=== PATIENT | male | born 1950 | race Caucasian/White ===

== ENCOUNTER 2020-01-20 17:45 | Emergency (ER) | payer OTHER ==
--- OUTSIDE RECORDS SUMMARY | 2020-01-20 17:46 | XMS REPORT | Continuity of Care Document ---
:1950 Author Organization [facility] t Address [address] [place] [address] Care Team Providers Name Role Phone Unavailable Unavailable Unavailable Problems Condition Condition Condition Status Onset Resolution Last Treating Co mments Source Name Details Category Date Date Treatment Clinician Date Seasonal Seasonal Problem [facility] Irregular Irregular Diagnosis Active [facility] heart rate heart rate Angy kes - [facility] Erectile Erectile Problem Active [facility] dysfunctio dysfunctio [facility]gy kes - n n [facility] Acute Acute Diagnosis Active [facility] pharyngiti pharyngiti Angy kes - s, s, Memoria unspecifie unspecifie l d etiology d etiology [facility] URI, acute URI, acute Diagnosis [facility] Bradycardi Bradycardi Problem Active [facility]ics Acute Acute Diagnosis Active [facility] bronchitis bronchitis Angy kes - , , Memoria unspecifie unspecifie l d organism d organism [facility] Allergies, Adverse Reactions, Alerts Allergy Allergy Status Severity Reaction(s) Onset Inactive Treating Comm ents Source Name Type Date Date Clinician codeine Adverse Active constipation [facility] Medications Ordered Filled Start Stop Current Ordering Indication Dosage Frequency Signature Comments Components Source Medication Medication Date Date Medication? Clinician (SIG) Name Name ProAir HFA ProAir HFA 2018-04 Yes Laine [address] [facility] 0-15 [place] needed for Luke s - 00:00: sob/wheezi [facility]oria 00 ng l [facility] Augmentin Augmentin 2018-04 2019- No Laine [address] [facility] 0-15 10-25 [facility] - 00:[facility]:00 [facility] 00 :[facility] l [facility] ent Clinics Sherrie Balderas 2019- 2019- No Laine [address] [facility] Perles Perles 0-15 10-25 Millender as needed [facility] - 00:00: 00:00 for cough Memoria 00 :00 l Outpati ent Clinics Oscillococc Oscillococc Yes Laine as [facility] inum inum Millender directed kes - [facility] Outpati ent Clinics Alive Mens Alive Mens Yes Laine as [facility] [employer] Millender directed kes [facility] Outpat[facility] ent Clinics Turmeric Turmeric Yes Laine [address] Millender [facility] Outpat[facility] ent Clinics Procedures This patient has no known procedures. Encounters Start End Encounter Admission Attending Care Care Encounter Source Date/Time Date/Time Type Type Clinicians Facility Department ID 2019-02-10 2019-02-10 Outpatient Shimon Davidson [id number] [facility] 09[facility]00 09[facility]00[facility]00 [facility] Outpati ent Clinics 2018-07-17 2018-07-17 Outpatient Shimon Davidson [id number] 09:30[facility]00 09:30:00 [facility] Outpat[facility] ent Clinics Results This patient has no known results.
[2020-01-20] MEDS ORDERED: TETANUS & DIPHTHERIA TOX,ADULT 0.5 ML VIAL ONE (20:22)
--- NOTE | 2020-01-20 20:47 | ER ---
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 Coronavirus ca1 screen: Client denies travel out of the [place] in the last 14 days. At this time, the client does not indicate any symptoms associated with coronavirus-19. Ebola Screen: Patient negative for fever greater than or equal to 101.5 degrees Fahrenheit, and additional compatible Ebola Virus Disease symptoms Patient denies exposure to infectious person. Patient denies travel to an Ebola-affected area in the 21 days before illness onset. No symptoms or risks identified at this time. Complicating Factors: There are no complicating factors for this patient. Initial Sepsis Screen: Does the patient meet any 2 criteria? No. Patient's initial sepsis screen is negative. Does the patient have a suspected source of infection? No. Patient's initial sepsis screen is negative. Risk Assessment: Do you want to hurt yourself or someone else? Patient reports no desire to harm self or others. Onset of symptoms was January 20, 2020. 18:14 Method Of Arrival: Ambulatory ca1 18:14 Acuity: DIANNA 4 ca1 Historical: - Allergies: 18:18 poison DAWNA; ca1 - Home Meds: 18:18 gabapentin oral oral [Active]; levothyroxine oral [Active]; Tramadol Oral [Active]; ca1 - PMHx: 18:18 Thyroid problem; Arthritis; ca1 - PSHx: 18:18 Clavicle Surgery; Vasectomy; ca1 - Immunization history:: Adult Immunizations up to date, Last tetanus immunization: unknown. - Social history:: Smoking status: Patient denies any tobacco usage or history of. Screenin:00 Abuse screen: Denies threats or abuse. Denies injuries from another. Nutritional ca1 screening: No deficits noted. Tuberculosis screening: No symptoms or risk factors identified. Fall Risk None identified. Assessment: 20:00 General: Appears in no apparent distress. comfortable, Behavior is calm, cooperative, ca1 appropriate for age. Pain: Complains of pain in left arm Pain currently is 4 out of 10 on a pain scale. Derm: Skin is healthy with good turgor, Skin is pink, warm \T\ dry. Musculoskeletal: Circulation, motion, and sensation intact. Capillary refill < 3 seconds. Injury Description: Laceration sustained to dorsal aspect of left forearm is clean, 0.5 to 2.5 cm long, not bleeding, was sustained 30-60 minutes ago. is bleeding a small amount. 21:00 Reassessment: Patient appears in no apparent distress at this time. Patient and/or ca1 family updated on plan of care and expected duration. Pain level reassessed. Patient is alert, oriented x 3, equal unlabored respirations, skin warm/dry/pink. Vital Signs: 18:14 BP 144 / 91; Pulse 72; Resp 16 S; Temp 97.1(TE); Pulse Ox 99% on R/A; Weight 117.93 kg ca1 (R); Height 6 ft. 0 in. (182.88 cm) (R); 20:00 BP 144 / 71; Pulse 58; Resp 15 S; Pulse Ox 100% on R/A; ca1 21:00 BP 142 / 91; Pulse 61; Resp 18 S; Pulse Ox 100% on R/A; ca1 18:14 Body Mass Index 35.26 (117.93 kg, 182.88 cm) ca1 ED Course: 17:48 Patient arrived in ED. as 18:16 Triage completed. ca1 18:18 Arm band placed on right wrist. ca1 19:57 Serene Caro RN is Primary Nurse. ca1 20:00 Patient has correct armband on for positive identification. Bed in low position. Call ca1 light in reach. Side rails up X 1. Pulse ox on. NIBP on. 20:10 Wound care: to laceration located on left arm was cleaned with Hibiclens, irrigated dh4 with normal saline, Patient tolerated well. 20:12 Rodolfo Gerard MD is Attending Physician. [facility] 21:39 Assist provider with laceration repair on palmar aspect of left forearm that was ca1 between 2.6 to 7.5 cm using sutures. Set up tray. Performed by Rodolfo Gerard MD Dressed with 4X4s, Kerlix, Neosporin, Patient tolerated well. Patient did not have IV access during this emergency room visit. 22:00 Report given to ALLY Camacho. 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 Exp: ca1 07/01/2022. Lot #: [id number]. } Route: IM; Site: left deltoid; 21:39 Follow up: Response: No adverse reaction ca1 21:38 Drug: Lidocaine-Epinephrine -1%: (1:100,000) 10 ml {Note: by Dr. Gerard.} Volume: 20 ca1 ml; Route: Infiltration; 22:00 Follow up: Response: No adverse reaction ca1 22:01 Not Given (Patient Refused): [place] 5 mg-325 mg 1 tabs PO once; RASS on ADMIN: Combtv4, ca1 Very Agttd3, Agttd2, Rstlss1, AlertClm0, Drwsy-1, Lt Sdtn-2, Mod Sdtn-3, Dp Sdtn-4, UnArsble-5 Outcome: 20:46 Discharge ordered by MD. colin 22:10 Patient left the ED. dm5 Signatures: Samantha Pisano, RN RN Rodolfo Fu MD MD cha Martinez, Amelia as Acob, Serene, RN RN ca1 Thai Moore
--- NOTE | 2020-01-20 20:47 | EDPHYS ---
Physician Documentation [facility] Name: Liang Herzog Age: 69 yrs Sex: Male : 1950 Arrival Date: 01/20/2020 Time: 17:48 Bed 18 Private MD: ED Physician Rodolfo Gerard HPI: 01/19 20:41 This 69 yrs old Male presents to ER via Ambulatory with complaints of cristi Laceration To Arm. 20:41 The patient has a laceration related to: doing yard work, occurred outdoors. The cristi laceration(s) is(are) located on the left arm. Onset: The symptoms/episode began/occurred just prior to arrival. Associated signs and symptoms: Pertinent negatives: deformity, dizziness, heavy bleeding, loss of consciousness, numbness distal to injury, suspected foreign body. The patient has not experienced similar symptoms in the past. Historical: - Allergies: 18:18 poison DAWNA; ca1 - Home Meds: 18:18 gabapentin oral oral [Active]; levothyroxine oral [Active]; Tramadol Oral [Active]; ca1 - PMHx: 18:18 Thyroid problem; Arthritis; ca1 - PSHx: 18:18 Clavicle Surgery; Vasectomy; ca1 - Immunization history:: Adult Immunizations up to date, Last tetanus immunization: unknown. - Social history:: Smoking status: Patient denies any tobacco usage or history of. ROS: 20:42 Constitutional: Negative for fever, chills, and weight loss, Eyes: Negative for injury, cristi pain, redness, and discharge, ENT: Negative for injury, pain, and discharge, Neck: Negative for injury, pain, and swelling, Cardiovascular: Negative for chest pain, palpitations, and edema, Respiratory: Negative for shortness of breath, cough, wheezing, and pleuritic chest pain, Abdomen/GI: Negative for abdominal pain, nausea, vomiting, diarrhea, and constipation, Back: Negative for injury and pain, : Negative for injury, bleeding, discharge, and swelling, Skin: Negative for injury, rash, and discoloration, Neuro: Negative for headache, weakness, numbness, tingling, and seizure, Psych: Negative for depression, anxiety, suicide ideation, homicidal ideation, and hallucinations, Allergy/Immunology: Negative for hives, rash, and allergies, Endocrine: Negative for neck swelling, polydipsia, polyuria, polyphagia, and marked weight changes, Hematologic/Lymphatic: Negative for swollen nodes, abnormal bleeding, and unusual bruising. 20:42 MS/extremity: Positive for decreased range of motion, pain, swelling, tenderness, of the palmar aspect of left forearm. Exam: 20:42 Constitutional: This is a well developed, well nourished patient who is awake, alert, cristi and in no acute distress. Head/Face: Normocephalic, atraumatic. Eyes: Pupils equal round and reactive to light, extra-ocular motions intact. Lids and lashes normal. Conjunctiva and sclera are non-icteric and not injected. Cornea within normal limits. Periorbital areas with no swelling, redness, or edema. ENT: Nares patent. No nasal discharge, no septal abnormalities noted. Tympanic membranes are normal and external auditory canals are clear. Oropharynx with no redness, swelling, or masses, exudates, or evidence of obstruction, uvula midline. Mucous membranes moist. Neck: Trachea midline, no thyromegaly or masses palpated, and no cervical lymphadenopathy. Supple, full range of motion without nuchal rigidity, or vertebral point tenderness. No Meningismus. Chest/axilla: Normal chest wall appearance and motion. Nontender with no deformity. No lesions are appreciated. Cardiovascular: Regular rate and rhythm with a normal S1 and S2. No gallops, murmurs, or rubs. Normal PMI, no JVD. No pulse deficits. Respiratory: Lungs have equal breath sounds bilaterally, clear to auscultation and percussion. No rales, rhonchi or wheezes noted. No increased work of breathing, no retractions or nasal flaring. Abdomen/GI: Soft, non-tender, with normal bowel sounds. No distension or tympany. No guarding or rebound. No evidence of tenderness throughout. Back: No spinal tenderness. No costovertebral tenderness. Full range of motion. Male : Normal genitalia with no discharge or lesions. MS/ Extremity: Pulses equal, no cyanosis. Neurovascular intact. Full, normal range of motion. Neuro: Awake and alert, GCS 15, oriented to person, place, time, and situation. Cranial nerves II-XII grossly intact. Motor strength 5/5 in all extremities. Sensory grossly intact. Cerebellar exam normal. Normal gait. Psych: Awake, alert, with orientation to person, place and time. Behavior, mood, and affect are within normal limits. 20:42 Skin: injury, laceration(s), the wound is approximately 4 cm(s), with a depth of .25 cm(s), of the palmar aspect of left forearm. Vital Signs: 18:14 BP 144 / 91; Pulse 72; Resp 16 S; Temp 97.1(TE); Pulse Ox 99% on R/A; Weight 117.93 kg ca1 (R); Height 6 ft. 0 in. (182.88 cm) (R); 20:00 BP 144 / 71; Pulse 58; Resp 15 S; Pulse Ox 100% on R/A; ca1 21:00 BP 142 / 91; Pulse 61; Resp 18 S; Pulse Ox 100% on R/A; ca1 18:14 Body Mass Index 35.26 (117.93 kg, 182.88 cm) ca1 Laceration: 20:42 Wound Repair of 4cm ( 1.6in ) subcutaneous laceration to dorsal aspect of left forearm. cristi Irregularly shaped.. Distal neuro/vascular/tendon intact. Anesthesia: Local anesthetic administered with 8 mls of 1% lidocaine w/ Epi. Wound prep: Moderate cleansing by me. Skin closed with 4 5-0 Prolene using interrupted sutures and sterile technique. Dressed with Neosporin. Patient tolerated well. MDM: 20:12 Patient medically screened. [facility] 20:42 Differential diagnosis: superficial laceration. Data reviewed: vital signs, nurses cristi notes. 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 rate is 58 beats/min, rhythm is regular, Pulse oximetry: on room air is 100 %. Counseling: I had a detailed discussion with the patient and/or guardian regarding: the historical points, exam findings, and any diagnostic results supporting the discharge/admit diagnosis, the need for outpatient follow up, for definitive care, a family practitioner. 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 Exp: ca1 07/01/2022. Lot #: [id number]. } Route: IM; Site: left deltoid; 21:39 Follow up: Response: No adverse reaction ca1 21:38 Drug: Lidocaine-Epinephrine -1%: (1:100,000) 10 ml {Note: by Dr. Gerard.} Volume: 20 ca1 ml; Route: Infiltration; 22:00 Follow up: Response: No adverse reaction ca1 22:01 Not Given (Patient Refused): [place] 5 mg-325 mg 1 tabs PO once; RASS on ADMIN: Combtv4, ca1 Very Agttd3, Agttd2, Rstlss1, AlertClm0, Drwsy-1, Lt Sdtn-2, Mod Sdtn-3, Dp Sdtn-4, UnArsble-5 Disposition: 01/20/20 20:46 Discharged to Home. Impression: Laceration without foreign body of left forearm. - Condition is Stable. - Discharge Instructions: Laceration Care, Adult, Laceration Care, Adult, [id number]. - Prescriptions for Keflex 500 mg Oral Capsule - take 1 capsule by ORAL route every 6 hours for 10 days; 28 capsule. - Medication Reconciliation Form, Thank You Letter, Antibiotic Education, Prescription Opioid Use form. - Follow up: Private Physician; When: 7 - 10 days; Reason: Recheck today's complaints, Staple/Suture removal, Re-evaluation by your physician. - Problem is new. - Symptoms have improved. Signatures: Samantha Pisano, RN RN dm5 Rodolfo Gerard MD MD cha Waters, Shelly, QA ARCHITECT-C QA ARCHITECT-Csnw Serene Caro RN RN ca1 Corrections: (The following items were deleted from the chart) 22:10 20:46 01/20/2020 20:46 Discharged to Home. Impression: Laceration without foreign body dm5 of left forearm. Condition is Stable. Forms are Medication Reconciliation Form, Thank You Letter, Antibiotic Education, Prescription Opioid Use. Follow up: Private Physician; When: 7 - 10 days; Reason: Recheck today's complaints, Staple/Suture removal, Re-evaluation by your physician. Problem is new. Symptoms have improved. cristi
[2020-01-20] MEDS ORDERED: LIDOCAINE 1% W/EPI 1:100,000 MDV 20 ML VIAL ONE (20:48)
[2020-01-20] MEDS ORDERED: HYDROCODONE/APAP 5/325 MG TAB ONE (22:10)
[2020-01-20 22:19] VITALS: TEMP 97.1
[2020-01-20 22:20] VITALS: O2SAT 100
[2020-01-20 22:21] VITALS: BP 142/91
== END 2020-01-20 22:10 | disposition home or self-care (01) ==
LOC: ER 17:45
PROC: 0JQH0ZZ Repair Left Lower Arm Subcutaneous Tissue and Fascia, Open Approach (ICD-10-PCS; principal; 2020-01-20)
DX: S51.812A Laceration without foreign body of left forearm, initial encounter (principal); W45.8XXA Other foreign body or object entering through skin, initial encounter; Y93.H2 Activity, gardening and landscaping; Y92.007 Garden or yard of unspecified non-institutional (private) residence as the place of occurrence of the external cause; E07.9 Disorder of thyroid, unspecified; Z91.048 Other nonmedicinal substance allergy status; Z23 Encounter for immunization
CPT/HCPCS: 90471; 90714; 99284